=== PATIENT | male | born 1945 | race Caucasian/White ===

== ENCOUNTER 2016-12-10 11:22 | Emergency (ER) | payer OTHER ==
[~2016-12-10] VITALS: Ht 185.4 cm; Wt 102.1 kg
[~2016-12-10 11:22] MED LIST: ATOR10TA88 PO; CHOL20009 PO; COEN200C4 PO; GLUC10007 PO; LISI-461 PO; MELA5CAP PO; MISCCAP80 PO; MULT-190 PO; MULT-513 PO; PRED1SUS3 OPL
[2016-12-10 11:31] VITALS: TEMP 36.7; Ht 185.4 cm; Wt 102.1 kg
[2016-12-10] MEDS ORDERED: MAGNTAB4 PO (12:48)
[2016-12-10 14:08] LABS: BASO % 0.3 %; BASO ABS # 0.03 K/uL (0-0.2); COMPLETE YES; EOS % 3.3 %; HEMATOCRIT 40.5 % (42-52); IG% 0.3 %; LYMPH % 14.8 %; LYMPH ABS # 1.48 K/uL (1.2-3.4); MEAN CELL VOLUME 85.8 fL (80-100); MEAN CORPUSCULAR HEMOGLOBIN 30.7 pg (25-34); MEAN CORPUSCULAR HGB CONC 35.8 g/dl (32-36); MEAN PLATELET VOLUME 9.5 fL (7.4-10.4); MONO % 7.3 %; PLATELET COUNT 189 K/uL (130-400); RED BLOOD COUNT 4.72 M/uL (4.7-6.1); WHITE BLOOD COUNT 10.01 K/uL (4.8-10.8)
[2016-12-10 14:37] LABS: BUN/CREATININE RATIO 23.5 (10-20); CALCIUM 9.2 mg/dl (8.5-10.1); CREATININE 0.98 mg/dl (0.60-1.40); POTASSIUM 4.5 mmol/L (3.5-5.1)
--- NOTE | 2016-12-10 14:53 | DIAGNOSTIC IMAGING REPORT ---
ULTRASOUND RIGHT LOWER EXTREMITY VENOUS CLINICAL HISTORY: Right leg swelling. COMPARISON STUDY: Bilateral lower extremity venous ultrasound dated 02/23/2015. TECHNIQUE: Real-time, grayscale, and color Doppler sonography of the deep veins of the right lower extremity was performed from the inguinal crease to the calf. Compression and augmentation were utilized. FINDINGS: There is nearly occlusive deep venous thrombosis identified in the popliteal vein. This extends into the calf within the peroneal vein. Reading visualized calf vessels are patent. The common femoral and superficial femoral veins are patent and normally compressible. The greater saphenous vein and the profunda femoris vein at the junction with the common femoral vein are clear. IMPRESSION: There is acute-appearing and nearly occlusive deep venous thrombosis identified within the right popliteal vein extending into the calf. See above. Electronically signed by: Leonid Michael M.D. 12/10/2016 2:52 PM Dictated Date/Time: 12/10/2016 2:50 PM
[2016-12-10] MEDS ORDERED: ENOX1INJ14 SQ (15:37)
[2016-12-10] MEDS ORDERED: WARF5TAB90 PO (15:37)
[2016-12-10 15:41] LABS: PROTHROMBIN TIME (PATIENT) 10.9 SECONDS (9.0-12.0)
[2016-12-10] MEDS ORDERED: WARFARIN SOD 5 MG TAB PO SCH (16:00)
[2016-12-10] MEDS ORDERED: ENOXAPARIN 150 MG/1ML SYR SQ SCH (16:00)
--- NOTE | 2016-12-10 16:09 | EMERGENCY ROOM VISIT NOTE ---
ED Visit Note First contact with patient: 13:02 I have personally seen and evaluated the patient with the PA. I agree with the diagnosis and management decisions and have been personally involved in the case. Please see Venu Hernandez PA-C's notes for further details of the history, physical and visit.
[2016-12-10 16:13] VITALS: BP 130/74; PULSE 76; O2SAT 94
--- NOTE | 2016-12-10 16:35 | Pharmacy Progress Note ---
ED Pharmacist Counseling Note Date of Service: Dec 10, 2016. I spent 35 minutes with the patient and his discussing warfarin and enoxaparin. Adverse effects, drug interactions, injection technique, and other pertinent drug information were reviewed. Provided Bella education paperwork: Step by Step - giving yourself and injection and What to Know when taking Warfarin. Scheduled an appointment with [facility] Anticoagulation clinic for 12/13/16 at 1000. Faxed Anticoagulation Clinic Referral Form to the clinic. Provided the patient with the Patient Itinerary Letter. All of the patient's questions and concerns were addressed.
--- NOTE | 2016-12-12 17:00 | EMERGENCY ROOM VISIT NOTE ---
ED Visit Note First contact with patient: 13:02 Chief Complaint: Right lower leg swelling. History of Present Illness: Mr. Eduardo is a 71-year-old white male who ambulates into the ED complaining of right lower leg swelling. Historically patient reports he's had a DVT in his right lower leg previously years ago after surgery. Patient reports approximately 9 days ago he noted some mild swelling in the right lower leg. This is associated with some mild achiness in the leg. He rates this discomfort 2/10. He has not identified any aggravating or alleviating factors related to the pain. He has not taken any medications or therapy spent pain and swelling prior to arrival at the hospital. He denies any associated symptoms including fevers, chills, sweats, skin eruptions, skin color changes, back pain, hip pain, knee pain, leg weakness/numbness/tingling, recent surgery/inactivity/extended travel, chest pain, palpitations, shortness of breath. Review of Systems: As noted above in history of present illness. All body systems were reviewed and found to be negative as noted above. Past Medical History: As previously noted, hypertension, status post bilateral inguinal hernia repair, bilateral cataract removal. Current Medications: Medications Dose Route/Sig Max Daily Dose Days Date Category Slow-Mag Tab (Magnesium Chloride) 64 Mg Tabcr 7.5 Mg PO DAILY 12/10/16 Reported Glucosamine (Glucosamine Sulfate) 1,000 Mg Tab 1,000 Mg PO DAILY 06/26/16 Reported Lipitor (Atorvastatin Calcium) 10 Mg Tab 10 Mg PO QPM 04/25/16 Reported Coq-10 (Coenzyme Q10 (Ubidecarenone)) 200 Mg Cap 1 Cap PO HS 04/25/16 Reported Vitamin D (Cholecalciferol) 2,000 Unit Tab 3 Tab PO QAM 04/25/16 Reported Mvi With Minerals (Multivitamins/Minerals) Tab 1 Tab PO QAM 08/16/14 Reported Zestril (Lisinopril) 10 Mg Tab 10 Mg PO QAM 07/19/14 Reported Ocuvite Preservision (Multivitamins/Minerals) 1 Tab Tab 1 Tab PO QPM 10/27/13 Reported Allergies to Medications: Meloxicam. Social History: Patient is currently retired; he lives with his and feels safe in his home environment; he denies tobacco use and admits to social alcohol use. Physical Examination: Vital Signs: Date Time Temp Pulse Resp B/P Pulse Ox O2 Delivery O2 Flow Rate FiO2 12/10/16 16:13 76 18 130/74 94 Room Air 12/10/16 15:07 73 16 132/82 96 Room Air 12/10/16 13:45 72 16 140/82 94 Room Air 12/10/16 11:31 36.7 96 18 165/92 96 Room Air GENERAL: 71-year-old male in no acute distress, or nontoxic-appearing, afebrile and hemodynamically stable. NEUROLOGICAL: Awake, alert and oriented to person, place and time. Answering questions appropriately and following commands. Normal gait. Good hand eye coordination. No focal motor sensory deficits. SKIN: Warm, dry and pink. No soft tissue eruptions or trauma noted. BACK: No tenderness over the bony thoracic and lumbar spine. No tenderness or muscle spasm throughout the paraspinous muscles Negative straight leg raise test. THORAX: Lungs sounds are clear to auscultation and equal bilaterally with symmetrical chest wall. No crepitus, tenderness, subcutaneous air or deformities noted. HEART: Regular rate and rhythm. No gallops, rubs or murmurs are appreciated. ABDOMEN: Flat, soft and nontender. Positive bowel sounds in all quadrants. No guarding, rigidity or organomegaly. RIGHT LOWER EXTREMITY: No gross bony deformity. No shortening or malrotation of the extremity. No tenderness in the hip, knee, lower leg, ankle or foot. Minimal swelling noted over the gastrocnemius. No dependent edema. No calf tenderness or cords. 2+ patellar and Achilles tendon reflexes intact and equal bilaterally. 5/5 muscle strength in all movements of the hip, knees, ankles and toes. He was able to distinguish light sensations through all dermatomes. ED Course: Patient is assessed as noted above. Laboratory Testing: Test 12/10/16 13:45 12/10/16 15:20 Range/Units White Blood Count 10.01 4.8-10.8 K/uL Red Blood Count 4.72 4.7-6.1 M/uL Hemoglobin 14.5 14.0-18.0 g/dL Hematocrit 40.5 42-52 % Mean Corpuscular Volume 85.8 80-100 fL Mean Corpuscular Hemoglobin 30.7 25-34 pg Mean Corpuscular Hemoglobin Concent 35.8 32-36 g/dl Platelet Count 189 130-400 K/uL Mean Platelet Volume 9.5 7.4-10.4 fL Neutrophils (%) (Auto) 74.0 % Lymphocytes (%) (Auto) 14.8 % Monocytes (%) (Auto) 7.3 % Eosinophils (%) (Auto) 3.3 % Basophils (%) (Auto) 0.3 % Neutrophils # (Auto) 7.41 1.4-6.5 K/uL Lymphocytes # (Auto) 1.48 1.2-3.4 K/uL Monocytes # (Auto) 0.73 0.11-0.59 K/uL Eosinophils # (Auto) 0.33 0-0.5 K/uL Basophils # (Auto) 0.03 0-0.2 K/uL RDW Standard Deviation 37.7 36.4-46.3 fL RDW Coefficient of Variation 12.0 11.5-14.5 % Immature Granulocyte % (Auto) 0.3 % Immature Granulocyte # (Auto) 0.03 0.00-0.02 K/uL Sodium Level 142 136-145 mmol/L Potassium Level 4.5 3.5-5.1 mmol/L Chloride Level 108 98-107 mmol/L Carbon Dioxide Level 26 21-32 mmol/L Anion Gap 8.0 3-11 mmol/L Blood Urea Nitrogen 23 7-18 mg/dl Creatinine 0.98 0.60-1.40 mg/dl Est Creatinine Clear Calc Drug Dose 84.3 ml/min Estimated GFR () 88.3 Estimated GFR (Non- 76.2 BUN/Creatinine Ratio 23.5 10-20 Random Glucose 97 70-99 mg/dl Calcium Level 9.2 8.5-10.1 mg/dl Chemistry Specimen Hemolysis Prothrombin Time 10.9 9.0-12.0 SECONDS Prothromb Time International Ratio 1.0 0.9-1.1 Activated Partial Thromboplast Time 25.1 21.0-31.0 SECONDS Partial Thromboplastin Ratio 1.0 RLE Venous Doppler Ultrasound: Was reviewed by myself and read by the radiologist and shows acute appearing and nearly occlusive deep vein thrombus within the right popliteal vein extending into the calf. Patient was offered pain medications and refused. Patient was given 5 mg of Coumadin by mouth and was given and instructed instructed on self injection of Lovenox 150 mg. Patient's case was reviewed with the ED pharmacist and my attending Dr. Choudhary; they both and apparently assessed the patient and we agreed on diagnostic approach, treatment, disposition and plan. Patient was educated about alecia's findings and instructed on her treatment plan; he verbalizes understanding and agreement with this plan. Clinical Impression: Right lower leg DVT. Decision-Making: Initially my differential diagnosis I considered radiculopathy , muscle strain, DVT, fracture and other causes. Disposition: Patient discharged home in stable condition accompanied by his ; prior to departure he was reassessed and subjectively reported he was pain- free Plan: Patient was prescribed 5 mg of Coumadin daily and 150 mg of Lovenox daily. Appointment was set with the anticoagulation clinic for follow-up care and treatment. Patient was also encouraged to follow-up with his primary care provider. Patient was encouraged return to the ED for worsening/uncontrolled pain, uncontrolled swelling, chest pain, shortness of breath or any new/concerning symptoms.
[2016-12-17] MEDS ORDERED: WARF5TAB7 PO (11:56)
[2016-12-23] MEDS ORDERED: ACET-1222 PO (13:29)
[2017-01-07] MEDS ORDERED: WARF-284 PO (12:41)
[2017-07-16] MEDS ORDERED: RIVAROXABAN PO (13:28)
== END 2016-12-10 16:14 | disposition home or self-care (01) ==
LOC: C.EDB 11:24 → C.EDA 16:14
DX: I82.4Z1 Acute embolism and thrombosis of unspecified deep veins of right distal lower extremity (principal); I10 Essential (primary) hypertension

== ENCOUNTER → 2016-12-31 | Outpatient (CLI) | payer OTHER ==
[~2016-12-31] MED LIST changes: +ACET-1222 PO; +COEN1CAP17 PO; -COEN200C4 PO; +ENOX100I INJ; +ENOX1INJ14 SQ; -GLUC10007 PO; +MAGNTAB17 PO; +MAGNTAB4 PO; -MELA5CAP PO; -MISCCAP80 PO; -PRED1SUS3 OPL; +RIVAROXABAN PO; +WARF-284 PO; +WARF5TAB7 PO
[2016-12-31 12:12] LABS: BASO % 0.5 %; BASO ABS # 0.04 K/uL (0-0.2); COMPLETE YES; EOS % 3.4 %; HEMATOCRIT 43.7 % (42-52); IG% 0.4 %; LYMPH % 18.9 %; LYMPH ABS # 1.58 K/uL (1.2-3.4); MEAN CELL VOLUME 88.8 fL (80-100); MEAN CORPUSCULAR HEMOGLOBIN 30.9 pg (25-34); MEAN CORPUSCULAR HGB CONC 34.8 g/dl (32-36); MEAN PLATELET VOLUME 10.1 fL (7.4-10.4); NEUT % 68.8 %; PLATELET COUNT 193 K/uL (130-400); RED BLOOD COUNT 4.92 M/uL (4.7-6.1); WHITE BLOOD COUNT 8.35 K/uL (4.8-10.8)
[2016-12-31 12:22] LABS: ALT/SGPT 42 U/L (12-78); BLOOD UREA NITROGEN 21 mg/dl (7-18); BUN/CREATININE RATIO 20.9 (10-20); CALCIUM 9.4 mg/dl (8.5-10.1); CARBON DIOXIDE 31 mmol/L (21-32); CHLORIDE 107 mmol/L (98-107); CHOLESTEROL 183 mg/dl (0-200); GLUCOSE 113 mg/dl (70-99); POTASSIUM 4.7 mmol/L (3.5-5.1); SODIUM 142 mmol/L (136-145); TRIGLYCERIDES 121 mg/dl (0-150); VERY LOW DENSITY LIPOPROT CALC 24 mg/dl
[2016-12-31 12:25] LABS: ALB/GLOB RATIO 1.1 (0.9-2); ALKALINE PHOSPHATASE 89 U/L (45-117); AST/SGOT 21 U/L (15-37); CHOLESTEROL/HDL RATIO 3.9; HDL CHOLESTEROL 47 mg/dl; LDL CHOLESTEROL CALCULATED 112 mg/dl; PROSTATE SPECIFIC ANTIGEN 0.416 ng/ml (0.000-4.000)
--- NOTE | 2017-01-07 06:35 | CODING QUERY MEDICAL NECESSITY ---
SUPPORTING DIAGNOSIS NEEDED A supporting diagnosis is required for the test/procedure performed on this patient in order for us to be reimbursed by the patient's insurance. Please provide a supporting diagnosis for the following test/procedure listed below next to the test name along with your signature. *If there is no additional diagnosis for this patient that would support the following test/procedure please document that below next to the test/procedure. Test(s)/Procedure(s) that require a supporting diagnosis: DOS 12/31 * PSA DIAGNOSIS: Provider Signature: Date: Thank you Cynthia Gregory Health Information Management Once completed, please kindly fax back to [phone] For questions please call [phone]
== END | disposition home or self-care (01) ==
LOC: C.LAB 10:39
PROVIDERS: ATTEND Nurse Practitioner Family
DX: R39.9 Unspecified symptoms and signs involving the genitourinary system (principal); E78.00 Pure hypercholesterolemia, unspecified; I10 Essential (primary) hypertension; E83.42 Hypomagnesemia; R73.9 Hyperglycemia, unspecified; C61 Malignant neoplasm of prostate; Z51.81 Encounter for therapeutic drug level monitoring; Z79.01 Long term (current) use of anticoagulants; Z86.718 Personal history of other venous thrombosis and embolism

== ENCOUNTER → 2017-01-06 | Outpatient (CLI) | payer OTHER ==
[~2017-01-06] MED LIST changes: -ACET-1222 PO; -ENOX1INJ14 SQ
--- NOTE | 2017-01-06 10:39 | DIAGNOSTIC IMAGING REPORT ---
C-SPINE ROUTINE 4 OR 5 VIEWS CLINICAL HISTORY: R20.0 Left arm [id number] COMPARISON STUDY: No previous studies for comparison. FINDINGS: There are degenerative changes most pronounced the C6-C7 level. There is multilevel uncovertebral joint spurring with multilevel foraminal narrowing. No destructive lesions are visualized. IMPRESSION: Multilevel degenerative change. No fractures or subluxations identified. Electronically signed by: Aristeo Cote M.D. 01/06/2017 10:37 AM Dictated Date/Time: 01/06/2017 10:36 AM
== END | disposition home or self-care (01) ==
LOC: C.RAD 10:21
PROVIDERS: ATTEND Nurse Practitioner Family
DX: R20.0 Anesthesia of skin (principal)

== ENCOUNTER → 2017-04-02 | Outpatient (CLI) | payer OTHER ==
[~2017-04-02] MED LIST changes: +ATOR10TA82 PO; -ATOR10TA88 PO
--- NOTE | 2017-04-02 10:00 | DIAGNOSTIC IMAGING REPORT ---
CERVICAL SPINE MRI HISTORY: Pain CERVICAL RADICULOPATHY TECHNIQUE: Multiplanar multisequence MRI of the cervical spine was performed without the use of contrast. COMPARISON STUDY: None. FINDINGS: Unremarkable signal characteristics the vertebral bodies. Moderate degenerative intervertebral this change throughout the entire cervical region. Findings suggesting spinal stenosis C3-C4 C4-C5 and to lesser extent C5-C6 based on the sagittal images. C2-C3: No significant central canal or neural foraminal narrowing. C3-C4: Broad-based disc herniation. Significant narrowing of spinal canal. Osteophytic narrowing of the neuroforamina bilaterally. C4-C5: Severe multifactorial spinal stenosis. Broad-based disc herniation. Osteophytic narrowing of the neuroforamina bilaterally. C5-C6: Moderate broad-based disc herniation. Mild impact upon the anterior aspect of the cervical cord. Narrowing of the neuroforamina bilaterally. C6-C7: Narrowing of the left neural foramina. Mild narrowing right neuroforamina. C7-T1: No significant central canal or neural foraminal narrowing. IMPRESSION: 1. Severe multifactorial spinal stenosis C3-C4, C4-C5, and C5-C6. 2. Narrowing of the bulk of the neuroforamina bilaterally again on a multifactorial basis. 3. Moderate narrowing of the left and to lesser extent right neural foramina at C6-C7. Electronically signed by: Derrick Borja M.D. 04/02/2017 9:59 AM Dictated Date/Time: 04/02/2017 9:50 AM
== END | disposition home or self-care (01) ==
LOC: C.OPENMRI 08:43
PROVIDERS: ATTEND Nurse Practitioner Family
DX: M54.12 Radiculopathy, cervical region (principal); M99.71 Connective tissue and disc stenosis of intervertebral foramina of cervical region

== ENCOUNTER 2017-07-07 11:52 | Emergency (ER) | payer OTHER ==
[~2017-07-07] VITALS: Ht 185.4 cm; Wt 102.3 kg
[~2017-07-07 11:52] MED LIST changes: -ATOR10TA82 PO; +ATOR10TA88 PO; -COEN1CAP17 PO; -ENOX100I INJ; -MAGNTAB17 PO; -RIVAROXABAN PO
[2017-07-07 11:55] VITALS: TEMP 37; Ht 185.4 cm; Wt 102.3 kg
[2017-07-07] MEDS ORDERED: SODIUM CHLORIDE 0.9% 1000ML 1,000 ML IV STA (12:23)
[2017-07-07 12:53] LABS: BASO % 0.3 %; BASO ABS # 0.02 K/uL (0-0.2); COMPLETE YES; EOS % 3.2 %; HEMATOCRIT 38.8 % (42-52); IG% 0.4 %; LYMPH % 20.5 %; LYMPH ABS # 1.62 K/uL (1.2-3.4); MEAN CORPUSCULAR HEMOGLOBIN 30.7 pg (25-34); MEAN CORPUSCULAR HGB CONC 34.5 g/dl (32-36); MEAN PLATELET VOLUME 9.9 fL (7.4-10.4); MONO % 10.9 %; NEUT % 64.7 %; PLATELET COUNT 212 K/uL (130-400); RED BLOOD COUNT 4.36 M/uL (4.7-6.1); WHITE BLOOD COUNT 7.89 K/uL (4.8-10.8)
--- NOTE | 2017-07-07 13:08 | DIAGNOSTIC IMAGING REPORT ---
CHEST ONE VIEW PORTABLE CLINICAL HISTORY: cough dyspnea COMPARISON STUDY: 07/19/2014 FINDINGS: Mild bibasilar atelectasis. Mild chronic elevation right hemidiaphragm. Mid and upper lungs are clear. IMPRESSION: Bibasilar platelike or subsegmental atelectatic change. Otherwise negative study The above report was generated using voice recognition software. It may contain grammatical, syntax or spelling errors. Electronically signed by: Derrick Borja M.D. 07/07/2017 1:06 PM Dictated Date/Time: 07/07/2017 1:06 PM
[2017-07-07 13:11] LABS: BUN/CREATININE RATIO 20.9 (10-20); CALCIUM 9.5 mg/dl (8.5-10.1); CREATININE 0.9 mg/dl (0.60-1.40); POTASSIUM 3.9 mmol/L (3.5-5.1)
[2017-07-07] MEDS ORDERED: OPTIRAY 320 IV PRN (14:00)
--- NOTE | 2017-07-07 14:05 | DIAGNOSTIC IMAGING REPORT ---
SOFT TISSUE NECK WITH HISTORY: 71 years-old Male severe sore throat, rule out [employer] patient presents with severe sore throat. Concern for peritonsillar abscess. Recent cervical spine surgery. COMPARISON: MRI of the cervical spine 04/02/2017 TECHNIQUE: Multiple axial CT images of the soft tissues of the neck were obtained following the intravenous administration of 93 mL Optiray 320. Coronal and sagittal reformatted images were obtained from axial data set and were submitted for review. A dose lowering technique was used consistent with the principals of VIDAL. FINDINGS: Postsurgical changes of the cervical spine are seen from C3-C6 with anterior fusion, discectomy and partial corpectomy. Alignment is satisfactory and the hardware appears intact. Air within the disc spaces at these levels likely postsurgical. Multilevel uncovertebral spurring, intervertebral disc space narrowing and facet arthropathy is noted. Evaluation of the prevertebral soft tissues is limited secondary to streak artifact from the aforementioned hardware. There is a peripherally enhancing fluid collection in the prevertebral soft tissues, 1.3 x 4.2 x 5.1 cm in AP, transverse and cranial caudal dimension seen at the level of C3-C5 extending to the level the hyoid bone. This partially displaces and causes mass effect upon the adjacent airway. No high-grade airway narrowing identified. Soft tissue thickening is noted in the region of the epiglottis with thickening of the aryepiglottic folds. No inflammatory changes extend into the upper mediastinum. There is mild atherosclerotic plaquing of the bilateral carotid bulbs. Atelectasis involves the lung apices. IMPRESSION: 1. Postsurgical changes of the cervical spine are seen at C3-C6 compatible with anterior fusion, discectomy and partial corpectomy. Hardware appears intact and alignment is satisfactory. 2. Evaluation of the prevertebral soft tissues is limited secondary to streak artifact from the aforementioned hardware. Within the limitations of the study, there is a peripherally enhancing fluid collection seen at the level of C3-C5 extending to level of the hyoid bone measuring up to 1.3 x 4.2 x 5.1 cm causing mass effect and mild narrowing of the adjacent airway. Differential considerations were include postsurgical seroma, hematoma or abscess. The above report was generated using voice recognition software. It may contain grammatical, syntax or spelling errors. Electronically signed by: Kenny Reed M.D. 07/07/2017 2:04 PM Dictated Date/Time: 07/07/2017 1:54 PM
[2017-07-07] MEDS ORDERED: MAGNTAB17 PO (14:07)
[2017-07-07] MEDS ORDERED: COEN1CAP17 PO (14:07)
[2017-07-07] MEDS ORDERED: ENOX100I INJ (14:07)
[2017-07-07 16:05] VITALS: BP 157/100; PULSE 78; O2SAT 95
--- NOTE | 2017-07-07 16:07 | EMERGENCY ROOM VISIT NOTE ---
History Report prepared by Lobo: Talia Mosquera Under the Supervision of: Dr. Adiel Tyler M.D. First contact with patient: 12:17 Chief Complaint: THROAT PAIN/INJURY Stated Complaint: THROAT SWELLING History of Present Illness The patient is a 71 year old male who presents to the Emergency Room with complaints of persistent throat pain starting 4 days ago. The patient had neck surgery for spinal stenosis 4 days ago. He had had numbness and tingling in his legs. The numbness is improved now. Since the surgery, he has had throat pain and a lot of clear phlegm. He is having swelling to his neck. He has had difficulty swallowing which he attributes to the pain. He has been unable to eat a full meal for the past 4 days. He has been taking Percocet for the pain which helps. He denies any drooling, fever, chills, nausea, vomiting, SOB, diarrhea, constipation, urinary symptoms, back pain, or lightheadedness. He is currently on Lovenox shots after the surgery. He is regularly on Xarelto for a history of blood clots. He does not smoke. Source of History: patient, spouse/significant other Onset: 4 days ago Position: throat Quality: other (pain) Timing: other (persistent) Modifying Factors (Relieving): other (Percocet) Associated Symptoms: No fevers, No chills, No SOB, No nausea, No vomiting, No back pain, No diarrhea, No urinary symptoms Note: Pt reports clear phlegm, trouble swallowing, neck swelling. Pt denies drooling, constipation, lightheadedness. Review of Systems See HPI for pertinent positives and negatives. A total of ten systems were reviewed and were otherwise negative. Past Medical & Surgical Medical Problems: (1) Prostate cancer Family History No pertinent family history stated. Social History Smoking Status: Former Smoker Marital Status: Current/Historical Medications Scheduled Atorvastatin (Lipitor), 10 MG PO QPM Cholecalciferol (Vitamin D), 2,000 UNITS PO QAM Coenzyme Q10 (Ubidecarenone) (Co Q 10), 100 MG PO DAILY Enoxaparin (Lovenox), 100 MG INJ BID Lisinopril (Zestril), 10 MG PO QAM Magnesium Chloride-Calcium Car (Slow-Mag), 1 TAB PO DAILY Multivitamins/Minerals (Mvi With Minerals), 1 TAB PO QAM Ocuvite Preservision (Ocuvite Preservision), 1 TAB PO QPM Allergies Coded Allergies: Meloxicam (Verified Allergy, Unknown, Pt unsure of reaction., 07/07/17) Physical Exam Vital Signs Date Time Temp Pulse Resp B/P (MAP) Pulse Ox O2 Delivery O2 Flow Rate FiO2 07/07/17 16:05 78 18 157/100 95 Room Air 07/07/17 13:55 82 18 156/90 93 Room Air 07/07/17 12:03 95 Room Air 07/07/17 11:55 37.0 88 20 148/85 95 Room Air Physical Exam GENERAL: Awake, alert, well-appearing, in no distress HENT: Normocephalic, atraumatic. Oropharynx unremarkable. Dry mucous membranes. No tongue elevation or trismus. EYES: Normal conjunctiva. Sclera non-icteric. NECK: Supple. No nuchal rigidity. FROM. No JVD. Anterior neck area of mild fluctuance that is mildly tender to palpation. No warmth or erythema. Incision site is clean, dry, and intact. No pain with tracheal manipulation. No stridor on auscultation of the neck. RESPIRATORY: Clear to auscultation. CARDIAC: Regular rate, normal rhythm. Extremities warm and well perfused. Pulses equal. ABDOMEN: Soft, non-distended. No tenderness to palpation. No rebound or guarding. No masses. RECTAL: Deferred. MUSCULOSKELETAL: Chest examination reveals no tenderness. The back is symmetrical on inspection without obvious abnormality. There is no CVA tenderness to palpation. No joint edema. LOWER EXTREMITIES: Calves are equal size bilaterally and non-tender. No edema. No discoloration. NEURO: Normal sensorium. No sensory or motor deficits noted. SKIN: No rash or jaundice noted. Medical Decision & Procedures ER Provider Diagnostic Interpretation: Radiology results as stated below per my review and radiologist interpretation: CHEST ONE VIEW PORTABLE CLINICAL HISTORY: cough dyspnea COMPARISON STUDY: 07/19/2014 FINDINGS: Mild bibasilar atelectasis. Mild chronic elevation right hemidiaphragm. Mid and upper lungs are clear. IMPRESSION: Bibasilar platelike or subsegmental atelectatic change. Otherwise negative study The above report was generated using voice recognition software. It may contain grammatical, syntax or spelling errors. Electronically signed by: Derrick Borja M.D. 07/07/2017 1:06 PM Dictated Date/Time: 07/07/2017 1:06 PM SOFT TISSUE NECK WITH HISTORY: 71 years-old Male severe sore throat, rule out [employer] patient presents with severe sore throat. Concern for peritonsillar abscess. Recent cervical spine surgery. COMPARISON: MRI of the cervical spine 04/02/2017 TECHNIQUE: Multiple axial CT images of the soft tissues of the neck were obtained following the intravenous administration of 93 mL Optiray 320. Coronal and sagittal reformatted images were obtained from axial data set and were submitted for review. A dose lowering technique was used consistent with the principals of VIDAL. FINDINGS: Postsurgical changes of the cervical spine are seen from C3-C6 with anterior fusion, discectomy and partial corpectomy. Alignment is satisfactory and the hardware appears intact. Air within the disc spaces at these levels likely postsurgical. Multilevel uncovertebral spurring, intervertebral disc space narrowing and facet arthropathy is noted. Evaluation of the prevertebral soft tissues is limited secondary to streak artifact from the aforementioned hardware. There is a peripherally enhancing fluid collection in the prevertebral soft tissues, 1.3 x 4.2 x 5.1 cm in AP, transverse and cranial caudal dimension seen at the level of C3-C5 extending to the level the hyoid bone. This partially displaces and causes mass effect upon the adjacent airway. No high-grade airway narrowing identified. Soft tissue thickening is noted in the region of the epiglottis with thickening of the aryepiglottic folds. No inflammatory changes extend into the upper mediastinum. There is mild atherosclerotic plaquing of the bilateral carotid bulbs. Atelectasis involves the lung apices. IMPRESSION: 1. Postsurgical changes of the cervical spine are seen at C3-C6 compatible with anterior fusion, discectomy and partial corpectomy. Hardware appears intact and alignment is satisfactory. 2. Evaluation of the prevertebral soft tissues is limited secondary to streak artifact from the aforementioned hardware. Within the limitations of the study, there is a peripherally enhancing fluid collection seen at the level of C3-C5 extending to level of the hyoid bone measuring up to 1.3 x 4.2 x 5.1 cm causing mass effect and mild narrowing of the adjacent airway. Differential considerations were include postsurgical seroma, hematoma or abscess. The above report was generated using voice recognition software. It may contain grammatical, syntax or spelling errors. Electronically signed by: Kenny Reed M.D. 07/07/2017 2:04 PM Dictated Date/Time: 07/07/2017 1:54 PM Laboratory Results 07/07/17 12:26 Red Blood Count 4.36, Mean Corpuscular Volume 89.0, Mean Corpuscular Hemoglobin 30.7, Mean Corpuscular Hemoglobin Concent 34.5, Mean Platelet Volume 9.9, Neutrophils (%) (Auto) 64.7, Lymphocytes (%) (Auto) 20.5, Monocytes (%) (Auto) 10.9, Eosinophils (%) (Auto) 3.2, Basophils (%) (Auto) 0.3, Neutrophils # (Auto ) 5.11, Lymphocytes # (Auto) 1.62, Monocytes # (Auto) 0.86, Eosinophils # (Auto ) 0.25, Basophils # (Auto) 0.02 07/07/17 12:26 Test 07/07/17 12:26 White Blood Count 7.89 K/uL (4.8-10.8) Red Blood Count 4.36 M/uL (4.7-6.1) Hemoglobin 13.4 g/dL (14.0-18.0) Hematocrit 38.8 % (42-52) Mean Corpuscular Volume 89.0 fL (80-100) Mean Corpuscular Hemoglobin 30.7 pg (25-34) Mean Corpuscular Hemoglobin Concent 34.5 g/dl (32-36) Platelet Count 212 K/uL (130-400) Mean Platelet Volume 9.9 fL (7.4-10.4) Neutrophils (%) (Auto) 64.7 % Lymphocytes (%) (Auto) 20.5 % Monocytes (%) (Auto) 10.9 % Eosinophils (%) (Auto) 3.2 % Basophils (%) (Auto) 0.3 % Neutrophils # (Auto) 5.11 K/uL (1.4-6.5) Lymphocytes # (Auto) 1.62 K/uL (1.2-3.4) Monocytes # (Auto) 0.86 K/uL (0.11-0.59) Eosinophils # (Auto) 0.25 K/uL (0-0.5) Basophils # (Auto) 0.02 K/uL (0-0.2) RDW Standard Deviation 39.0 fL (36.4-46.3) RDW Coefficient of Variation 12.0 % (11.5-14.5) Immature Granulocyte % (Auto) 0.4 % Immature Granulocyte # (Auto) 0.03 K/uL (0.00-0.02) Anion Gap 9.0 mmol/L (3-11) Est Creatinine Clear Calc Drug Dose 91.9 ml/min Estimated GFR () 97.9 Estimated GFR (Non- 84.4 BUN/Creatinine Ratio 20.9 (10-20) Calcium Level 9.5 mg/dl (8.5-10.1) Laboratory results reviewed by me Medications Administered Medications (Trade) Dose Ordered Sig/Kyle Route Start Time Stop Time Status Last Admin Dose Admin Sodium Chloride 1,000 ml @ 999 mls/hr Q1H1M STAT IV 07/07/17 12:23 07/07/17 13:23 DC 07/07/17 12:36 999 MLS/HR ED Course 1221: The patient was evaluated in room B4B. A complete history and physical exam was performed. 1223: Sodium Chloride 1000 ml @ 999 mls/hr IV. 1525: I discussed the patient's case with Dr. Abdul [facility]. He recommends that the patient follow up with his own providers. 1535: I reevaluated the patient. I updated him on the results. 1547: I left a voicemail for Dr. Lea [facility] regarding the patient. 1550: Dr. Lea called back. He had not intended to sent the patient to the ED here. He thinks that the patient can follow up as an outpatient and he should present to the ED in [place] for worsening symptoms. 1559: I reevaluated the patient. He is doing well. I discussed results and discharge instructions: he verbalized understanding and agreement. The patient is ready for discharge. Medical Decision I reviewed the patient's past medical history, medications, and the nursing notes as described above. Differential diagnosis: post op hematoma, seroma, infection. The patient is a 71-year-old gentleman with a past medical history of a recent 3 level ACDF on with Dr. 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 On arrival the patient is in no acute distress, afebrile stable vital signs. He has mild fluctuance surrounding the incision site which otherwise is clean dry and intact. No overlying erythema or warmth or crepitus. No pain with tracheal manipulation. No tongue elevation or trismus. CT scan of the neck shows a fluid collection with a broad differential including postop seroma, hematoma, abscess with mild compression of the airway. However clinically the patient has no respiratory symptoms with no stridor and does not have any excessive secretions or difficulty handling secretions. Case discussed with our ENT, Dr. Cameron, who believed since the patient is clinically well-appearing no indication for emergent ENT evaluation here rather should be referred to his surgeon. Thus, case was discussed with Dr. Lea the patient's surgeon who says the patient was incorrectly advised by clinic RN to go to his nearest emergency department rather should've presented to their clinic or call him personally to answer questions. He agrees that if we feel the patient is well-appearing, there is no need for admission at this time and can be discharged with strict return instructions and plan for follow-up on Friday when he returns to the office or prior to that if the patient has any concerns. Can continue his Lovenox. Findings and plan for follow-up with Dr. Lea d/w patient. Patient agreeable and d/c'd per discharge instructions. Medication Reconcilliation Current Medication List: was personally reviewed by me Blood Pressure Screening Patient's blood pressure: Elevated blood pressure Blood pressure disposition: Elevated BP felt to be situational Consults Time Called: 1523 Consulting Physician: Christa [facility]ney ENT Returned Call: [phone] I discussed the patient's case with him. He recommends that the patient follow up with his own providers. Additional Consults: Time Called: 1546 Consulted Physician: Dr. Lea, [facility] Returned Call: [phone] Additional Comments: He had not intended to sent the patient to the ED here. He thinks that the patient can follow up as an outpatient and he should present to the ED in [place] for worsening symptoms. Impression Primary Impression: Sputum production Additional Impression: Hematoma Scribe Attestation The scribe's documentation has been prepared under my direction and personally reviewed by me in its entirety. I confirm that the note above accurately reflects all work, treatment, procedures, and medical decision making performed by me. Departure Information Dispostion Home / Self-Care Referrals Johnson Hughes III, CRNP (PCP) Patient Instructions ED Hematoma, ED Seroma Post Op, [facility] Additional Instructions Please follow up with your neurosurgeon, Dr. Lea, on Friday for re-evaluation. For any concerns she should call Dr. Lea to his cell phone, . You likely have a hematoma from your surgery in the setting of your blood thinners. Otherwise, your exam, chest xray, and CT scan did not show signs of an emergent condition at this time. Continue your medications as prescribed. Return to the emergency department for worsening symptoms such as shortness of breath, wheezing, increased secretions or drooling, fevers or as described in the accompanying instructions. Problem Qualifiers
[2017-07-16] MEDS ORDERED: RIVAROXABAN PO (13:28)
== END 2017-07-07 16:34 | disposition home or self-care (01) ==
LOC: C.EDB 11:53
DX: R09.3 Abnormal sputum (principal); L76.22 Postprocedural hemorrhage of skin and subcutaneous tissue following other procedure; M48.02 Spinal stenosis, cervical region; Z79.01 Long term (current) use of anticoagulants; Z85.46 Personal history of malignant neoplasm of prostate; Z86.718 Personal history of other venous thrombosis and embolism; Z86.711 Personal history of pulmonary embolism; Z87.891 Personal history of nicotine dependence

== ENCOUNTER → 2017-07-16 | Outpatient (CLI) | payer OTHER ==
[~2017-07-16] MED LIST changes: +ATOR10TA82 PO; -ATOR10TA88 PO; +COEN1CAP17 PO; +ENOX100I INJ; +MAGNTAB17 PO; -MAGNTAB4 PO; +RIVAROXABAN PO; -WARF-284 PO; -WARF5TAB7 PO
[2017-07-16 13:28] VITALS: BP 142/90; PULSE 91; TEMP 36.7; O2SAT 93
--- NOTE | 2017-07-16 14:39 | Radiation Oncology Follow-Up ---
Radiation Oncology Follow-Up Date of Visit Jul 16, 2017. Reason For Visit Annual follow-up Radiation Completion Date 03/10/14 Diagnosis (1) Prostate cancer Status: Resolved Onset Date: 09/27/2013 Location: both lobes of the prostate Histology Subtype: adenocarcinoma Stage: ll (B) Permanent Comment: Rising PSA, pretreatment PSA 4.07, clinical stage T1c Status post ultrasound-guided biopsies 09/27/2013. Biopsy stage T2c Prashanth grade 3+3 Status post completion of radiation therapy utilizing IMRT/IGRT completed 2013 received 7800 cGy Last Edited By: Maddison Fournier on Oct 19, 2015 15:53 Interim History He's been doing well over this past year. Today he gave an AUA score of 2. Last year he gave a score of 8. He does not require any medication to help with urination. He completed expanded prostate cancer index composite for clinical practice and gave a score of one of 12 in urinary incontinence symptoms. He gave a score of 0 12 and urinary irritation symptoms. He gave a score of 0 of 12 and bowel symptoms. He gave a score 8 of 12 and sexual symptoms. To note he stated this is not a problem. He gave a score of 2 of 12 and hormonal vitality symptoms. His total was 11 of 60. Last year his score was 13 of 60. He had a PSA 12/31/2016 and that was 0.416. PSA prior with 06/24 and that was 0.434. He recently underwent surgery to the cervical spine. He had severe spinal stenosis. He is steadily improving postoperatively. He'll soon be starting rehabilitation therapy. He previously had paresthesias of his arms and some numbness in his leg. This is steadily improving and resolving. Allergies Coded Allergies: Meloxicam (Verified Allergy, Unknown, Pt unsure of reaction., 07/07/17) Home Medications Scheduled Atorvastatin (Lipitor), 10 MG PO QPM Cholecalciferol (Vitamin D), 2,000 UNITS PO QAM Coenzyme Q10 (Ubidecarenone) (Co Q 10), 100 MG PO DAILY Lisinopril (Zestril), 10 MG PO QAM Multivitamins/Minerals (Mvi With Minerals), 1 TAB PO QAM Ocuvite Preservision (Ocuvite Preservision), 1 TAB PO QPM [zxarelto], 20 MG PO DAILY Review of Systems Gastrointestinal: Symptoms: WNL Oral: Symptoms: No Problems Respiratory: Symptoms: WNL Urinary: Symptoms: WNL Skin: Symptoms: No Problems Physical Exam Vital Signs Date Time Temp Pulse Resp B/P (MAP) Pulse Ox O2 Delivery O2 Flow Rate FiO2 07/16/17 13:28 36.7 91 18 142/90 93 Pain: Patient Pain Scale: 0 - 10 Initial Pain Intensity: 0.0 Fatigue: None General Appearance: no apparent distress, + pertinent finding (he has a cervical collar in place.) Eyes: normal inspection, EOMI ENT: normal ENT inspection, hearing grossly normal Respiratory/Chest: lungs clear, no respiratory distress, no accessory muscle use Cardiovascular: regular rate, rhythm, no gallop, no murmur Abdomen: non tender, soft, no organomegaly Anal / Rectum: Normal sphincter tone. Prostate is smooth without nodules. No rectal masses no rectal bleeding. Neurologic/Psychiatric: no motor/sensory deficits, alert, normal mood/affect Skin: warm/dry Laboratory Studies Test 06/03/17 11:39 07/07/17 12:26 07/16/17 13:43 Hexagonal Phase Confirmation Negative (Negative) Protein C Activity 134 % (70-180) Activated Protein C Resistance 5.1 ratio (>=2.1) Protein S Activity 134 % (70-150) Anti-Thrombin III Activity 101 % activity (80-120) Factor V Leiden Mutation see note Factor V Leiden Interpretation see note Factor V Leiden Reviewed By see note Prothrombin Gene Mutation see note Prothrombin Gene Mutation Comment see note Prothrombin Mutation Reviewed By see note Pvkq-mrgl-0-Glycoprotein I IgG Ab <9 SGU (<=20) Twlm-xxsn-5-Glycoprotein I IgA Ab <9 MANINDER (<=20) Koft-dplm-5-Glycoprotein I IgM Ab <9 SMU (<=20) Anti-Cardiolipin IgG Antibody <14 GPL (< = 14) Anti-Cardiolipin IgA Antibody <11 APL (< = 11) Anti-Cardiolipin IgM Antibody 19 MPL (< = 12) White Blood Count 7.89 K/uL (4.8-10.8) Red Blood Count 4.36 M/uL (4.7-6.1) Hemoglobin 13.4 g/dL (14.0-18.0) Hematocrit 38.8 % (42-52) Mean Corpuscular Volume 89.0 fL (80-100) Mean Corpuscular Hemoglobin 30.7 pg (25-34) Mean Corpuscular Hemoglobin Concent 34.5 g/dl (32-36) Platelet Count 212 K/uL (130-400) Mean Platelet Volume 9.9 fL (7.4-10.4) Neutrophils (%) (Auto) 64.7 % Lymphocytes (%) (Auto) 20.5 % Monocytes (%) (Auto) 10.9 % Eosinophils (%) (Auto) 3.2 % Basophils (%) (Auto) 0.3 % Neutrophils # (Auto) 5.11 K/uL (1.4-6.5) Lymphocytes # (Auto) 1.62 K/uL (1.2-3.4) Monocytes # (Auto) 0.86 K/uL (0.11-0.59) Eosinophils # (Auto) 0.25 K/uL (0-0.5) Basophils # (Auto) 0.02 K/uL (0-0.2) RDW Standard Deviation 39.0 fL (36.4-46.3) RDW Coefficient of Variation 12.0 % (11.5-14.5) Immature Granulocyte % (Auto) 0.4 % Immature Granulocyte # (Auto) 0.03 K/uL (0.00-0.02) Sodium Level 137 mmol/L (136-145) Potassium Level 3.9 mmol/L (3.5-5.1) Chloride Level 102 mmol/L (98-107) Carbon Dioxide Level 26 mmol/L (21-32) Anion Gap 9.0 mmol/L (3-11) Blood Urea Nitrogen 19 mg/dl (7-18) Creatinine 0.90 mg/dl (0.60-1.40) Est Creatinine Clear Calc Drug Dose 91.9 ml/min Estimated GFR () 97.9 Estimated GFR (Non- 84.4 BUN/Creatinine Ratio 20.9 (10-20) Random Glucose 107 mg/dl (70-99) Calcium Level 9.5 mg/dl (8.5-10.1) Assessment & Plan Plan: PSA was drawn today prior to examination. Patient will be notified as to results. Continue follow-up with Dr. Augustin and his primary care provider. We asked him to return to our office in 1 year. He'll be seeing Dr. Augustin in 6 months. With recheck PSA. He may call our office he has any questions or concerns. Total Time In Follow-Up I spent 20 minutes speaking to the patient and performing examination. I spent 15 minutes reviewing information and completing this note. Copy To Johnson Hughes III, CRNP; Dre Augustin MD
== END | disposition home or self-care (01) ==
LOC: C.ONC 13:16
PROVIDERS: ATTEND Physician Assistant Medical
DX: Z08 Encounter for follow-up examination after completed treatment for malignant neoplasm (principal); Z92.3 Personal history of irradiation; Z85.46 Personal history of malignant neoplasm of prostate

== ENCOUNTER → 2017-09-05 | Outpatient (CLI) | payer OTHER ==
[~2017-09-05] MED LIST changes: -ENOX100I INJ; -MAGNTAB17 PO
[2017-09-05 12:32] LABS: BASO % 0.3 %; BASO ABS # 0.02 K/uL (0-0.2); COMPLETE YES; EOS % 1.8 %; HEMATOCRIT 38.2 % (42-52); IG% 0.1 %; LYMPH % 22.7 %; LYMPH ABS # 1.75 K/uL (1.2-3.4); MEAN CELL VOLUME 89.5 fL (80-100); MEAN CORPUSCULAR HEMOGLOBIN 31.1 pg (25-34); MEAN CORPUSCULAR HGB CONC 34.8 g/dl (32-36); MEAN PLATELET VOLUME 10.1 fL (7.4-10.4); MONO % 8.3 %; NEUT % 66.8 %; PLATELET COUNT 178 K/uL (130-400); RED BLOOD COUNT 4.27 M/uL (4.7-6.1); WHITE BLOOD COUNT 7.71 K/uL (4.8-10.8)
[2017-09-05 12:55] LABS: ALT/SGPT 37 U/L (12-78); BLOOD UREA NITROGEN 19 mg/dl (7-18); BUN/CREATININE RATIO 19.3 (10-20); CALCIUM 9.3 mg/dl (8.5-10.1); CARBON DIOXIDE 25 mmol/L (21-32); CHLORIDE 109 mmol/L (98-107); CHOLESTEROL 138 mg/dl (0-200); CREATININE 0.98 mg/dl (0.60-1.40); GLUCOSE 99 mg/dl (70-99); SODIUM 141 mmol/L (136-145)
[2017-09-05 12:58] LABS: ALB/GLOB RATIO 1.2 (0.9-2); ALKALINE PHOSPHATASE 82 U/L (45-117); AST/SGOT 26 U/L (15-37); CHOLESTEROL/HDL RATIO 2.8; HDL CHOLESTEROL 50 mg/dl; LDL CHOLESTEROL CALCULATED 65 mg/dl; TRIGLYCERIDES 116 mg/dl (0-150); VERY LOW DENSITY LIPOPROT CALC 23 mg/dl
[2017-09-06 07:43] LABS: ESTIMATED AVERAGE GLUCOSE 114 mg/dl; HA1C FLAG Normal (Normal)
== END | disposition home or self-care (01) ==
LOC: C.LAB 11:50
PROVIDERS: ATTEND Internal Medicine Hematology & Oncology
DX: R73.9 Hyperglycemia, unspecified (principal); E78.00 Pure hypercholesterolemia, unspecified; I82.409 Acute embolism and thrombosis of unspecified deep veins of unspecified lower extremity; R20.0 Anesthesia of skin; I10 Essential (primary) hypertension

== ENCOUNTER → 2017-09-30 | Outpatient (CLI) | payer OTHER ==
[2017-09-30 13:35] LABS: ESTIMATED AVERAGE GLUCOSE 114 mg/dl; HA1C FLAG Normal (Normal)
[2017-09-30 13:41] LABS: ALT/SGPT 38 U/L (12-78); AST/SGOT 22 U/L (15-37); BLOOD UREA NITROGEN 19 mg/dl (7-18); BUN/CREATININE RATIO 20.3 (10-20); CALCIUM 9.5 mg/dl (8.5-10.1); CARBON DIOXIDE 28 mmol/L (21-32); CHLORIDE 106 mmol/L (98-107); CREATININE 0.93 mg/dl (0.60-1.40); GLUCOSE 106 mg/dl (70-99); POTASSIUM 4.6 mmol/L (3.5-5.1); SODIUM 137 mmol/L (136-145)
[2017-09-30 13:45] LABS: ALB/GLOB RATIO 1.2 (0.9-2); ALKALINE PHOSPHATASE 92 U/L (45-117); CHOLESTEROL 161 mg/dl (0-200); CHOLESTEROL/HDL RATIO 3.2; HDL CHOLESTEROL 50 mg/dl; LDL CHOLESTEROL CALCULATED 91 mg/dl; TRIGLYCERIDES 98 mg/dl (0-150); VERY LOW DENSITY LIPOPROT CALC 20 mg/dl
== END | disposition home or self-care (01) ==
LOC: C.LAB 12:36
PROVIDERS: ATTEND Nurse Practitioner Family
DX: R73.9 Hyperglycemia, unspecified (principal); E78.00 Pure hypercholesterolemia, unspecified; I10 Essential (primary) hypertension; E83.42 Hypomagnesemia

== ENCOUNTER → 2017-10-08 | Outpatient (CLI) | payer OTHER ==
--- NOTE | 2017-10-08 12:37 | DIAGNOSTIC IMAGING REPORT ---
CERVICAL SPINE 2 OR 3 VIEWS CLINICAL HISTORY: EVALUATE CERVICAL SPINE FUSION COMPARISON STUDY: Cervical spine 01/06/2017. CT 07/07/2017. FINDINGS: Alignment and curvature are intact. The cervical spine is visualized from C1 through the superior endplate of T1. Status post anterior cervical discectomy and fusion from C3 through C6. The hardware appears intact. Prevertebral soft tissues and the C1-C2 interval are within normal limits. There is moderate disc space narrowing at C6-C7. No fractures within the cervical spine. Moderate facet osteoarthritis throughout the cervical spine. The lung apices are clear. IMPRESSION: 1. Anterior cervical discectomy and fusion from C3 through C6. The hardware appears intact. 2. No fracture or subluxation within the cervical spine. 3. Moderate degenerative disc disease at C6-C7. Electronically signed by: Nico Parks M.D. 10/08/2017 12:35 PM Dictated Date/Time: 10/08/2017 12:32 PM
== END | disposition home or self-care (01) ==
LOC: C.RAD 11:49
PROVIDERS: ATTEND Neurological Surgery
DX: M47.12 Other spondylosis with myelopathy, cervical region (principal); M50.323 Other cervical disc degeneration at C6-C7 level; M43.22 Fusion of spine, cervical region; Z96.9 Presence of functional implant, unspecified

== ENCOUNTER → 2017-12-09 | Outpatient (CLI) | payer OTHER | END | disposition home or self-care (01) | LOC: C.LAB 13:48 | PROVIDERS: ATTEND Urology | DX: R39.9 Unspecified symptoms and signs involving the genitourinary system (principal); I82.409 Acute embolism and thrombosis of unspecified deep veins of unspecified lower extremity ==